=== PATIENT | female | born 1990 | race Caucasian/White ===

== ENCOUNTER 2025-07-23 05:26 | Emergency (ER) | payer SELFPAY ==
[~2025-07-23] VITALS: Ht 162.6 cm; Wt 81.0 kg
[2025-07-23 05:30] VITALS: O2SAT 98
[2025-07-23 06:31] LABS: BASOPHILS % 0.4 % (0.0-2.0); EOSINOPHILS % 1.1 % (0.0-5.0); HEMATOCRIT. 33.9 % (36.0-48.0); HEMOGLOBIN. 10.9 g/dL (12.0-16.0); LYMPHOCYTES % 19.0 % (20.0-50.0); MEAN PLATELET VOLUME 9.8 fl (7.4-10.4); MONOCYTES % 6.8 % (2.0-8.0); NEUTROPHILS % 72.7 % (40.0-76.0); PLATELET 279 x1000/uL (130-400); RED BLOOD CELL COUNT 4.28 mill/uL (4.2-5.4); RED CELL DISTRIBUTION WIDTH 15.8 % (11.6-14.6)
[2025-07-23 06:39] LABS: CREATININE 0.8 mg/dL (0.6-1.0); UREA NITROGEN BLOOD 11 mg/dL (9-23)
[2025-07-23 06:40] LABS: PROTEIN TOTAL 6.9 g/dL (6.0-8.3)
[2025-07-23 06:41] LABS: ASPARTATE AMINOTRANSFERASE 17 IU/L (<34); BILIRUBIN TOTAL 0.4 mg/dL (0.1-1.0)
[2025-07-23 07:02] LABS: HCG SCREEN NEGATIVE
[2025-07-23] MEDS: ACETAMINOPHEN 325MG TABLET PO ONE (07:40)
[2025-07-23] MEDS ORDERED: IOHEXOL-300 100 ML BOTTLE ONE (11:00)
[2025-07-23 11:19] VITALS: BP 111/58; PULSE 72; RESP 16; TEMP 37.1; O2SAT 98
== END 2025-07-23 11:20 | disposition home or self-care (01) ==
LOC: ER 05:26
DX: S09.8XXA Other specified injuries of head, initial encounter (principal); R10.11 Right upper quadrant pain; Z90.49 Acquired absence of other specified parts of digestive tract; Y08.89XA Assault by other specified means, initial encounter; Y93.89 Activity, other specified; Y92.89 Other specified places as the place of occurrence of the external cause; Y99.8 Other external cause status
CPT/HCPCS: 99285; 70450; 80053; 84703; 83690; 85025; 36415; 72125; 74177; Q9967